=== PATIENT | female | born 1980 | race Caucasian/White ===

== ENCOUNTER 2017-09-10 10:43 | Day surgery (SDC) | payer BC ==
[~2017-09-10 10:43] MED LIST: Lactated Ringers 1,000 ML IV SCH; ceFAZolin 2 GM in Premix Bag 1 BAG IV ONE
--- NOTE | 2017-09-10 11:47 | PCM.PREANE ---
Preanesthetic Assessment - Procedure Proposed Procedure: Exostectomy 1st metatarsa=ophalangeal joint - Anesthesia/Transfusion/Family Hx Anesthesia History: Prior Anesthesia Reaction Family History of Anesthesia Reaction: No Transfusion History: No Prior Transfusion(s) Intubation History: Unknown - Review of Systems General: No Symptoms Pulmonary: No Symptoms, Other (former smoker) Cardiovascular: No Symptoms Gastrointestinal: No Symptoms Neurological: No Symptoms Other: Reports: None - Physical Assessment NPO Status Date: 09/09/17 NPO Status Time: 22:00 Height: 5 ft 4.75 in Weight: 149 lb ASA Class: 2 Mental Status: Alert & Oriented x3 Airway Class: Mallampati = 2 Dentition: Reports: Dentures (intact) Thyro-Mental Finger Breadths: 3 Mouth Opening Finger Breadths: 3 Lungs: Clear to Auscultation, Normal Respiratory Effort Cardiovascular: Regular Rate, Regular Rhythm, No Murmurs - Lab Values: Laboratory Last Values Urine HCG, Qual NEGATIVE (NEGATIVE) 09/10/17 11:10 - Allergies Allergies/Adverse Reactions: Allergies Allergy/AdvReac Type Severity Reaction Status Date / Time shrimp Allergy Cannot Verified 09/08/17 15:35 Remember - Blood Blood Available: No Product(s) Available: None - Anesthesia Plan Pre-Op Medication Ordered: None - Acknowledgements Anesthesia Type Planned: MAC (probably sedation and local vs general) Pt an Appropriate Candidate for the Planned Anesthesia: Yes Alternatives and Risks of Anesthesia Discussed w Pt/Guardian: Yes Pt/Guardian Understands and Agrees with Anesthesia Plan: Yes PreAnesthesia Questionnaire HEENT History: Reports: Other (See Below) Other HEENT History: has upper and lower partial removable dentures Musculoskeletal History: Reports: Fracture Other Musculoskeletal History: hx of fx right arm x2, right clavicle (no hardware) - Past Surgical History GI Surgical History: Reports: Appendectomy, Other (See Below) Other GI Surgeries/Procedures: Abdominoplasty Female Surgical History: Reports: Breast Reconstruction - SUBSTANCE USE Smoking Status *Q: Former Smoker Tobacco Use Within Last Twelve Months: No Recreational Drug Use History: No - HOME MEDS Home Medications: Home Meds . [No Known Home Meds] 09/08/17 [History] - CURRENT (IN HOUSE) MEDS Current Meds: Current Medications Lactated Ringer's (Ringers, Lactated) 1,000 mls @ 125 mls/hr IV ASDIRECTED AYO Discontinued Medications Cefazolin Sodium/Dextrose 2 gm (/ Premix) 50 mls @ 100 mls/hr IV ONETIME ONE Stop: 09/09/17 21:43
[2017-09-10] MEDS ORDERED: Lidocaine 1% 20 ML MDV ONE (11:52)
[2017-09-10] MEDS ORDERED: Lidocaine 2% 5 ML SDV ONE ×2 (11:52→11:53)
[2017-09-10] MEDS ORDERED: Bupivacaine 0.5% 30 ML SDV ONE (11:52)
[2017-09-10] MEDS ORDERED: Propofol 200 MG/20 ML SDV ONE ×2 (11:52→11:54)
[2017-09-10] MEDS ORDERED: Ketorolac 30 MG/ML SDV ONE (11:54)
[2017-09-10] MEDS ORDERED: fentaNYL 250 MCG/5 ML SDV ONE (11:54)
[2017-09-10] MEDS ORDERED: Ondansetron 4 MG/2 ML SDV ONE (11:54)
[2017-09-10] MEDS ORDERED: Midazolam 1 MG/ML 2 ML SDV ONE (11:54)
[2017-09-10] MEDS ORDERED: Sodium Chloride 0.9% 20 ML ONE (11:55)
[2017-09-10] MEDS ORDERED: ceFAZolin 1 GM Vial ONE (11:55)
[2017-09-10] MEDS ORDERED: ePHEDrine 50 MG/ML SDV ONE (13:11)
[2017-09-10] MEDS ORDERED: fentaNYL 100 MCG/2 ML SDV IVPUSH PRN (13:54)
--- NOTE | 2017-09-10 13:58 | PN ---
Preoperative Progress Note IDENTIFICATION: The patient is a 37-year-old female. PREOPERATIVE DIAGNOSIS: Exostosis, first metatarsophalangeal joint, right foot. PLANNED PROCEDURE: Exostectomy of first metatarsophalangeal joint, right foot. ANESTHESIA: General LMA. HEMOSTASIS: Above ankle pneumatic tourniquet inflated to a pressure of 250 mmHg. ALLERGIES: The patient is allergic to shrimp flavor. No known drug allergies. PAST MEDICAL HISTORY: 1. Pendulous breast. 2. Post-anesthesia nausea. PAST SURGICAL HISTORY: 1. Breast reduction surgery. 2. Abdominoplasty. MEDICATIONS: The patient's current medication is Garcinia cambogia one capsule twice a day. No other medications. Preoperative history and physical completed and signed off by Dr. Sadiq Jones with no contraindications to surgery. All patient questions have been answered. No guarantees expressed or implied and consent has been signed and placed in the chart. MYRA MORLEY /[id number] ZANE
--- NOTE | 2017-09-10 14:19 | PCM.OPNOTE ---
- General Post-Op/Procedure Note Date of Surgery/Procedure: 09/10/17 Operative Procedure(s): exostectomy first metatarsophalangeal joint right foot Findings: consistent with diagnosis Pre Op Diagnosis: exostosis first metatarsophalangeal joint right foot Post-Op Diagnosis: exostosis first metatarsophalangeal joint right foot Anesthesia Technique: General LMA Primary Surgeon: Kip Munoz Anesthesia Provider: Sanchez Raygoza Pathology: none EBL in mLs: 3 Complications: none Condition: Good Free Text/Narrative:: materials: 3-0 vicryl, 4-0 vicryl, 5-0 monocryl injectables: 10 ml of a 1:1 mix of 1% lidocaine plain and 0.5% marcaine plain
--- NOTE | 2017-09-10 14:46 | PCM.POSTAN ---
POST ANESTHESIA ASSESSMENT - MENTAL STATUS Mental Status: Alert, Oriented - RESPIRATORY Respiratory Status: Respiratory Rate WNL, Airway Patent, O2 Saturation Stable - CARDIOVASCULAR CV Status: Pulse Rate WNL, Blood Pressure Stable - GASTROINTESTINAL GI Status: No Symptoms - PAIN Pain Score: 0 - POST OP HYDRATION Hydration Status: Adequate & Stable
--- NOTE | 2017-09-10 14:54 | PCM48HPAN ---
Post Anesthesia Note - EVALUATION WITHIN 48HRS OF ANESTHETIC Vital Signs in Normal Range: Yes Patient Participated in Evaluation: Yes Respiratory Function Stable: Yes Airway Patent: Yes Cardiovascular Function Stable: Yes Hydration Status Stable: Yes Pain Control Satisfactory: Yes Nausea and Vomiting Control Satisfactory: Yes Mental Status Recovered: Yes Resp Rate: 13 - COMMENTS/OBSERVATIONS Free Text/Narrative:: Pt stable with good pain control and no nausea. Pt ready to go home. No apparent anesthesia complications.
--- NOTE | 2017-09-10 23:10 | OR ---
SURGEON: Kip Munoz DPM DATE OF PROCEDURE: 09/10/2017 IDENTIFICATION: The patient is a 37-year-old female. PREOPERATIVE DIAGNOSIS: Exostosis, first metatarsophalangeal joint, right foot. POSTOPERATIVE DIAGNOSIS: Exostosis, first metatarsophalangeal joint, right foot. PROCEDURE: Exostectomy, first metatarsophalangeal joint, right foot. ANESTHESIA: General LMA. HEMOSTASIS: Above ankle pneumatic tourniquet, inflated to a pressure of 250 mmHg after an Esmarch bandage exsanguination. ESTIMATED BLOOD LOSS: 3 mL. PATHOLOGY: None. CONDITION: The patient tolerated the procedure and anesthesia well with no complications noted, and a prompt hyperemic response was noted to the digits of the right lower extremity after deflation of the tourniquet. MATERIALS: 3-0 Vicryl, 4-0 Vicryl, 5-0 Monocryl. INJECTABLES: 10 mL of a 1:1 mixture of 1% lidocaine plain and 0.5% Marcaine plain. JUSTIFICATION FOR PROCEDURE: The patient, Mrs. Lebron, has had long-standing pain over the right first metatarsophalangeal joint from an exostosis which appears to be at the head of the first metatarsal dorsal aspect. The patient particularly has pain when plantarflexing at the ankle and dorsiflexing the great toe. The pain is consistent with radiologic findings of a sizable exostosis on x-ray. The patient's condition was severe enough that conservative measures are not likely to provide adequate alleviation of symptoms. The patient was given options of conservative treatment including a rigid Kim's extension and a custom-made orthotic, however, has elected surgical excision and presents for surgery today. PROCEDURE IN DETAIL: Exostectomy, first metatarsophalangeal joint, right foot. The patient was brought to the operating room, placed on the operating table in a supine position, at which time, an aseptic scrub and drape was performed about the patient's right lower extremity. An incision was planned over the central aspect of the dorsal first metatarsophalangeal joint of the right foot. Esmarch bandage exsanguination was performed, and inflation of the above ankle pneumatic tourniquet to a pressure of 250 mmHg. The Esmarch bandage was then removed. The incision was made over the planned incision site through the superficial and deep layers of the skin, and then, a small curved hemostat was used to widen the incision and undermine the subcutaneous layers on either side. The extensor hallucis longus tendon was identified and retracted out of the way. All small bleeders were cauterized as necessary. The exostosis was readily identified at the head of the first metatarsal. Inspection of the base of the proximal phalanx along the dorsal aspect does not reveal any significant spurring. A bone rongeur was used to remove the majority of the exostosis and this was followed by use of a power rasp to remove the remainder of the exostosis and to smooth and contour the dorsal medial, dorsal, and dorsal lateral aspects of the first metatarsal head. After repeated rasping from different angles and reinspection and flushing with copious amounts of normal sterile saline, the exostosis was judged to have been removed in toto. Excellent dorsiflexion was noted at the first metatarsophalangeal joint and after flushing with copious amounts of sterile saline one more time, the area was dried in preparation for layered soft tissue closure. Deep tissue was reapproximated with 3-0 Vicryl suture, subcutaneous layer with 4-0 Vicryl suture, and the superficial skin was reapproximated using a 5-0 Monocryl suture with a subcuticular stitch technique. The 1:2 mixture of 1% lidocaine plain and 0.5% Marcaine plain, totaling 10 mL, was infiltrated about the surgical site and the area was dabbed dry with wet and dry gauze in preparation for application of dressings. Xeroform gauze was placed over the surgical site, and fluff gauze was placed between the toes and over the dorsal aspect of the right foot. The entire area was covered with a Kerlix roll and secured with an Jack bandage. The patient tolerated the anesthesia well with no complications noted, and the tourniquet was deflated at a time of 57 minutes. A prompt hyperemic response was noted to all digits of the patient's right foot. The patient was transported from the operating room to the recovery room and is to be discharged shortly thereafter. A postoperative shoe was placed on the patient in the recovery room. Postoperative instructions were given in writing for adequate analgesic care and minimal weightbearing as well as instructions to rest, ice, and elevate the right foot. The patient has a followup appointment in my office already scheduled, and the patient does maintain my cell phone number in the event of any concerns or questions. MYRA MORLEY /[id number]
--- NOTE | 2017-09-14 12:13 | CR ---
EXAMINATION: Right foot HISTORY: exostectomy COMPARISON: None TECHNIQUE: 4 fluoroscopic images provided FINDINGS/IMPRESSION: Operative control films demonstrate removal of a dorsal osteophyte at the distal aspect of the first metatarsal.
== END 2017-09-10 15:15 | disposition home or self-care (01) ==
LOC: MW.SDS 10:43
PROVIDERS: ATTEND Podiatrist Foot & Ankle Surgery
DX: M89.9 Disorder of bone, unspecified (principal); Z87.891 Personal history of nicotine dependence; Z91.013 Allergy to seafood
CPT/HCPCS: 28104; 76000; 81025; J0690; J1885; J2250; J2405; J3010; J7120; 01470; J2704